=== PATIENT | male | born 1985 | race Caucasian/White ===

== ENCOUNTER 2016-10-08 18:59 | Emergency (ER) | payer OTHER ==
[2016-10-08 19:20] VITALS: RESP 16; TEMP 98.8
--- NOTE | 2016-10-08 19:28 | EDPHY ---
H & P Stated Complaint: pt says he fell rock climbing, c/o swelling/pain in R ankle Time Seen by Provider: 10/08/16 19:22 HPI/ROS: CHIEF COMPLAINT: Right ankle pain HISTORY OF PRESENT ILLNESS: The patient is a 31-year-old healthy man who comes to the emergency department complaining of right ankle pain. He states that he was rock climbing and slipped. He slid down the rope and caught himself with his right foot on the rock wall. He is not sure if it twisted it or impacted it. He has pain over the dorsal ankle. No bony tenderness. No swelling. He is able to ambulate. His told him he had to come get checked out. He does not think that it is injured. REVIEW OF SYSTEMS: Constitutional: denies: chills, fever, recent illness, recent injury EENTM: denies: blurred vision, double vision, nose congestion Respiratory: denies: cough, shortness of breath Cardiac: denies: chest pain, irregular heart rate, lightheadedness, palpitations Gastrointestinal/Abdominal: denies: abdominal pain, diarrhea, nausea, vomiting, blood streaked stools Genitourinary: denies: dysuria, frequency, hematuria, pain Musculoskeletal: See HPI Skin: denies: lesions, rash, jaundice, bruising Neurological: denies: headache, numbness, paresthesia, tingling, dizziness, weakness Hematologic/Lymphatic: denies: blood clots, easy bleeding, easy bruising Immunologic/allergic: denies: HIV/AIDS, transplant EXAM: GENERAL: Well-appearing, well-nourished and in no acute distress. HEAD: Atraumatic, normocephalic. EYES: Pupils equal round and reactive to light, extraocular movements intact, sclera anicteric, conjunctiva are normal. ENT: TMs normal, nares patent, oropharynx clear without exudates. Moist mucous membranes. NECK: Normal range of motion, supple without lymphadenopathy or JVD. LUNGS: Breath sounds clear to auscultation bilaterally and equal. No wheezes rales or rhonchi. HEART: Regular rate and rhythm without murmurs, rubs or gallops. ABDOMEN: Soft, nontender, normoactive bowel sounds. No guarding, no rebound. No masses appreciated. BACK: No CVA tenderness, no spinal tenderness, step-offs or deformities EXTREMITIES: Moderate pain to dorsum of right ankle, no bony tenderness, no swelling, no deformity. Normal range of motion and strength. Strong pulses NEUROLOGICAL: Cranial nerves II through XII grossly intact. Normal speech, normal gait. 5/5 strength, normal movement in all extremities, normal sensation PSYCH: Normal mood, normal affect. SKIN: Warm, dry, normal turgor, no visible rashes or lesions. Source: Patient Exam Limitations: No limitations - Medical/Surgical History Hx Asthma: No Hx Chronic Respiratory Disease: No Hx Diabetes: No Hx Cardiac Disease: No Hx Renal Disease: No Hx Cirrhosis: No Hx Alcoholism: No Hx HIV/AIDS: No Hx Splenectomy or Spleen Trauma: No Other PMH: none - Family History Significant Family History: No pertinent family hx - Social History Smoking Status: Never smoked Alcohol Use: Sober Drug Use: None Constitutional: Initial Vital Signs Temperature (C) 37.1 C 10/08/16 19:17 Heart Rate 76 10/08/16 19:17 Respiratory Rate 16 10/08/16 19:17 Blood Pressure 148/89 H 10/08/16 19:17 O2 Sat (%) 97 10/08/16 19:17 O2 Delivery Mode Room Air Allergies/Adverse Reactions: No Known Allergies Allergy (Unverified 10/08/16 19:20) Home Medications: Medication Instructions Recorded NK [No Known Home Meds] 10/08/16 Medical Decision Making - Diagnostics Imaging Results: Imaging Impressions Ankle X-Ray 10/08/16 19:27 Impression: 1. No definite acute fracture. 2. Recommend additional imaging if symptoms persist, if clinically indicated. Imaging: I viewed and interpreted images myself ED Course/Re-evaluation: pt is reassured. Placed in prateek wrap and discussed f/u. He declines any further w/u or treatment. Differential Diagnosis: Partial list of the Differential diagnosis considered include but were not limited to; ankle fracture, sprain and although unlikely based on the history and physical exam, I also considered dislocation, tendon rupture, foot injury. I discussed these differential diagnoses and the plan with the patient as well as the usual and expected course. The patient understands that the diagnosis is provisional and that in medicine we are not always correct and that further workup is often warranted. Usual and customary warnings were given. All of the patient's questions were answered. The patient was instructed to return to the emergency department should the symptoms at all worsen or return, otherwise to followup with the physician as we discussed. Departure - Departure Disposition: Home, Routine, Self-Care Clinical Impression: Ankle sprain Qualifiers: Encounter type: initial encounter Involved ligament of ankle: other ligament Laterality: right Qualified Code(s): S93.491A - Sprain of other ligament of right ankle, initial encounter Condition: Fair Instructions: Ankle Sprain (ED) Referrals: [facility] [Other] - As per Instructions Davie Espinoza MD [Medical Doctor] - As per Instructions
[2016-10-08 20:24] VITALS: BP 147/73; PULSE 75; O2SAT 95
== END 2016-10-08 20:42 | disposition home or self-care (01) ==
DX: S93.491A Sprain of other ligament of right ankle, initial encounter (principal); W18.39XA Other fall on same level, initial encounter; Y99.8 Other external cause status; Y93.39 Activity, other involving climbing, rappelling and jumping off